=== PATIENT | female | born 1980 | race Caucasian/White ===

== ENCOUNTER 2023-08-04 05:51 | Observation (INO) ==
--- NOTE | 2023-07-30 09:28 | Anesthesiology Consultation ---
Date of Service July 30, 2023 Assessment & Plan (1) Encounter for pre-operative examination: Chart Review Chart Review: Acceptable Risk for Surgery (pending DOS EKG ) and Patient NOT seen in Pre Admission Testing - Check BSG AM DOS - Check test AM DOS - Check EKG due to history of prediabetes- on Ozempic for weight loss - Ozempic instructions: Patient informed by PAT nursing to stop 7 days prior to surgery. Patient takes Ozempic for weight loss; also history of prediabetes noted. Last dose of Ozempic was 07/21/23- will be off Ozempic x 14 days by DOS on 08/04/23 -Infectious Disease screening: Per PAT nursing assessment on 07/29/23. No known infectious disease contacts in past 10 days or current infectious disease symptoms. No recent travel outside the country. History Surgery Operation Date: 08/04/23 07:30 Proposed Procedures p Panniculectomy with Suction-Assisted Lipectomy of Truck - Jada Wang MD Height/Weight Height: 5 ft 4.5 in Weight: 89.811 kg Allergies Allergy/AdvReac Type Severity Reaction Status Date / Time No Known Drug Allergies Allergy Verified 07/29/23 16:03 Medications Home Medications Medication Instructions Recorded Confirmed Last Taken sertraline 100 mg tablet (Zoloft) 100 mg PO HS 08/22/22 07/29/23 08/28/22 20:00 cholecalciferol (vitamin D3) 125 125 mcg PO DAILY #90 caps 09/03/22 07/29/23 Unknown mcg (5,000 unit) capsule semaglutide 1 mg/dose (2 mg/1.5 2 mg subcut WK 11/07/22 07/29/23 Unknown mL) subcutaneous pen injector (Ozempic) levothyroxine 125 mcg tablet 125 mcg PO .COMPLEX #30 tabs 04/07/23 07/29/23 Unknown (Synthroid) azelastine 137 mcg (0.1 %) nasal 1 spray intranasal BID 07/03/23 07/29/23 Unknown spray aerosol fluticasone propionate 50 1 spray intranasal DAILY 07/03/23 07/29/23 Unknown mcg/actuation nasal spray,suspension oxycodone-acetaminophen 5 mg-325 1 tab PO Q4H PRN pain 3 days #18 07/25/23 07/25/23 Unknown mg tablet (Percocet) tabs Past Medical History Medical History Anxiety and depression GERD (gastroesophageal reflux disease) 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 body aches, fever, fatigue, congestion; resolved. Hypothyroidism Obesity states reason for ozempic PONV (postoperative nausea and vomiting) Prediabetes Past Family History Family History Father Hypertension Mother Hypertension Other No family history of adverse response to anesthesia Past Surgical History Surgical History H/O section X 1 History of cholecystectomy History of esophageal dilatation History of esophagogastroduodenoscopy (EGD) History of gynecologic surgery exploratory procedure and D&C History of incisional hernia repair History of wisdom tooth extraction Social History Smoking Status: Former smoker tobacco type: cigarettes Do You Dip or Chew Tobacco: No Smoking End Date: age 25 Hx Alcohol Use: No alcohol intake frequency: a few times a week Hx Substance Use: No substance use type: does not use Lab Results Anesthesia Preop Results Results Anesthesia Widget: WBC 7.07 K/ul (4.8-10.8) 07/25/23 Hgb 12.1 g/dl (12.0-16.0) 07/25/23 Hct 36.2 % (37.0-47.0) L 07/25/23 Plt 264 K/uL (130-400) 07/25/23 Na 139 mmol/L (136-145) 07/25/23 K 3.6 mmol/L (3.5-5.1) 07/25/23 Cl 108 mmol/L (98-107) H 07/25/23 CO2 25 mmol/L (21-32) 07/25/23 BUN 11 mg/dl (6-23) 07/25/23 Creat 0.63 mg/dl (0.6-1.2) 07/25/23 Glucose Level 76 mg/dl (70-99(Fasting)) 07/25/23 PT 10.8 Seconds (9.0-12.0) 07/25/23 INR 1.0 (0.9-1.1) 07/25/23 TSH 0.636 uIu/ml (0.300-4.500) 06/27/23 Free T4 1.06 ng/dl (0.61-1.60) 06/27/23
[2023-08-04] MEDS: LR 15ML/HR IV SCH (06:25)
[2023-08-04] MEDS ORDERED: ACETAMINOPHEN 1000 MG/100 ML IV IV ONE (06:44)
[2023-08-04] MEDS ORDERED: DexMEDEtomidine HCL IV 100 MCG/ML VIAL IV ONE (06:44)
[2023-08-04] MEDS ORDERED: FAMOTIDINE/PF 20 MG/2 ML VIAL IV ONE (06:44)
[2023-08-04] MEDS ORDERED: fentaNYL citrate PF 100 MCG/2 ML VIAL ONE (06:50)
[2023-08-04] MEDS ORDERED: MIDAZOLAM HCL 1 MG/ML 2ML VIAL ONE (06:50)
[2023-08-04] MEDS ORDERED: DEXAMETHASONE SOD INJ 4 MG/ML VIAL ONE (06:52)
[2023-08-04] MEDS ORDERED: PROPOFOL IV EMULSION 10 MG/ML 20 ML VIAL IV ONE ×2 (06:52→10:50)
[2023-08-04] MEDS ORDERED: ONDANSETRON INJ 2 MG/ML 2 ML VIAL ONE (06:52)
[2023-08-04] MEDS ORDERED: SODIUM CHLORIDE 0.9% PF INJ 10 ML VIAL ONE (06:52)
[2023-08-04] MEDS ORDERED: ROCURONIUM BROMIDE 10 MG/ML 5 ML VIAL IV ONE ×3 (06:52→10:51)
--- NOTE | 2023-08-04 06:53 | History & Physical Bridge Note ---
Date of Service August 04, 2023 History & Physical Bridge Note I have examined the patient, reviewed the History & Physical and in the interval since the performance of the History & Physical I have noted the following changes of clinical significance: no changes noted
[2023-08-04] MEDS ORDERED: KETAMINE HCL 10MG/ML SYR ONE (07:04)
[2023-08-04] MEDS: SCOPOLAMINE 1 MG TDSY TD ONE (07:17)
[2023-08-04] MEDS ORDERED: DROPERIDOL 5 MG/2 ML VIAL IV PRN (07:18)
[2023-08-04] MEDS ORDERED: fentaNYL citrate PF 100 MCG/2 ML VIAL IV PRN (07:18)
[2023-08-04] MEDS ORDERED: ATROPINE SULFATE 0.1 MG/ML 10ML SYR IV PRN (07:18)
[2023-08-04] MEDS ORDERED: ePHEDrine sulfate 50 MG/ML AMP IV PRN (07:18)
[2023-08-04] MEDS: ceFAZolin 2000MG 2,000 MG/15 ML SYR IV SCH ×2 (07:30→14:40)
[2023-08-04] MEDS: TRANEXAMIC ACID 1,000 MG **IV Pre-op IV SCH (07:40)
[2023-08-04] MEDS: LIDOCAINE 1% LOCAL 20 ML VIAL ONE ×2 (08:23→10:08)
[2023-08-04] MEDS ORDERED: PROPOFOL IV EMULSION 10 MG/ML 100 ML VIAL IV ONE (08:24)
[2023-08-04] MEDS: EPINEPHrine INJ 1 MG/ML AMP ONE ×2 (08:25)
[2023-08-04] MEDS ORDERED: HYDROmorphone INJ 1 MG/ML SYRINGE ONE (08:39)
--- NOTE | 2023-08-04 10:38 | Operative Report ---
PG Post Operative Report Pre & Post Diagnosis Operation Date: 08/04/23 07:30 Pre-Op Diagnosis: Abdominal Pannus, Encounter for Cosmetic Surgery Post-Op Diagnosis: Abdominal Pannus, Encounter for Cosmetic Surgery, Incisional Hernias x2 I identified the patient and participated in the time-out.: Yes Procedure Operation Date: 08/04/23 07:30 Actual Procedures p Panniculectomy with Suction-Assisted Lipectomy of Trunk(Not Applicable) - Jada Wang MD s Incisional Hernias Repair x2 with Vicryl Mesh - Sheila Gayle DO Surgeon Sheila Gayle DO Mrp Controller RUSTAM Caban PA Estimated Blood Loss 1 Findings See Below Two hernias involving the external oblique aponeurosis at the lateral aspects of the previous pfannenstiel incision. Left side incision 5x4cm, right incision 1cm. Specimens None Anesthesia Type General Complications None Indications Patient for panniculectomy. two incisional hernias encountered Description of Procedure I was called into the operating room to evaluate the two hernias encountered during the panniculectomy and would require repair. The larger left sided external oblique hernia was from the underlying muscle and a thin, woven, Vicryl mesh was placed anterior to his muscle layer and posterior to the external oblique aponeurosis to help reinforce underlying weakened muscle. A small amount of bleeding of muscle fibers was controlled with cautery. This was secured in place with 0-Ethibond suture. The overlying external oblique was closed using 0-Ethibond suture. The smaller hernia at the left edge of the pfannenstiel incision was closed primarily with 0-Ethibond sutures. There were no patient concerns during this portion of the procedure. Dr. Wang was then able to continue with the remainder of the panniculectomy. Details of which can be found in a separate operative report. I attest to the content of the Intraoperative Record and any orders documented therein. Any exceptions are noted below.
[2023-08-04] MEDS: TRANEXAMIC ACID 1,000 MG **IV Intra-op IV SCH (10:52)
--- NOTE | 2023-08-04 11:03 | Electrocardiogram Report ---
Test Reason : Blood Pressure : / mmHG Vent. Rate : 056 BPM Atrial Rate : 056 BPM P-R Int : 180 ms QRS Dur : 084 ms QT Int : 422 ms P-R-T Axes : 041 035 027 degrees QTc Int : 407 ms Sinus bradycardia Otherwise normal ECG No previous ECGs available Confirmed by Wilfredo Trejo ([id number]) on 08/04/2023 11:03:13 AM Referred By: Jada Wang Confirmed By:Navjot Trejo
[2023-08-04] MEDS ORDERED: NEOSTIGMINE METHYLSULFATE 1 MG/ML 10ML VIAL ONE (11:17)
[2023-08-04] MEDS ORDERED: GLYCOPYRROLATE 0.2 MG/ML VIAL ONE ×2 (11:17)
--- NOTE | 2023-08-04 11:58 | Post Operative Brief Note ---
PG Immediate Post Op with CF Date of Surgery August 04, 2023 Pre & Post Diagnosis Operation Date: 08/04/23 07:30 Pre-Op Diagnosis: Abdominal Pannus, Encounter for Cosmetic Surgery Post-Op Diagnosis: Abdominal Pannus, Encounter for Cosmetic Surgery, Incisional Hernias x2 I identified the patient and participated in the time-out.: Yes Procedure Operation Date: 08/04/23 07:30 Actual Procedures p Panniculectomy with Suction-Assisted Lipectomy of Trunk(Not Applicable) - Jada Wang MD s Incisional Hernia Repair x2 with Vicryl Mesh - Sheila Gayle DO Surgeon Jada Wang MD Elevator Examiner And Adjuster RUSTAM Caban PA Estimated Blood Loss 20 Findings See Below 2 hernias noted infraumbilically at prior Pfannenstiel incision Specimens Specimen Description: A. Abdominal Pannus (please weigh specimen) Drains Cartwright Catheter and Tal-Martino Drain (Mervin drains x2) Anesthesia Type General Complications none
--- NOTE | 2023-08-04 13:30 | Anesthesiology Progress Note ---
Date of Service August 04, 2023 Anesthesia Post Procedure Vital Signs Vital Signs: Temp Pulse Resp BP Pulse Ox O2 Del Method O2 Flow Rate 08/04/23 13:25 36.3 C L 49 L 18 114/76 100 Room Air 08/04/23 13:15 36.4 C L 50 L 12 106/67 99 Room Air 08/04/23 13:05 51 L 13 115/71 96 Room Air 08/04/23 12:55 48 L 13 107/71 95 Room Air 08/04/23 12:45 49 L 12 118/78 100 Oxymask 4 08/04/23 12:35 53 L 14 125/78 100 Oxymask 4 08/04/23 12:25 68 12 112/74 100 Oxymask 4 08/04/23 12:17 36.0 C L 86 16 110/88 99 Oxymask 6 08/04/23 06:15 18 Room Air Transfer of Care Handoff Completed per policy Notes Mental Status: alert / awake / arousable Patient Amnestic to Procedure: Yes Nausea / Vomiting: adequately controlled Pain: adequately controlled Airway Patency, RR, SpO2: stable & adequate BP & HR: stable & adequate Hydration State: stable & adequate Anesthetic Complications: no major complications apparent and Pt Satisfied with anesthetic care
[2023-08-04] MEDS ORDERED: ONDANSETRON INJ 2 MG/ML 2 ML VIAL IV PRN (13:58)
[2023-08-04] MEDS ORDERED: MoRPHine SULFATE 2 MG/ML CARP IV PRN (13:58)
[2023-08-04] MEDS ORDERED: PROMETHAZINE HCL 12.5 MG in SODIUM CHLORIDE 0.9% 50 ML IV PRN (13:58)
[2023-08-04] MEDS ORDERED: oxyCODONE/ACETAMINOPHEN 5mg/325mg TAB PO PRN (13:58)
[2023-08-04] MEDS: BUPIVACAINE 0.25% PF 30 ML VIAL ONE (14:19)
[2023-08-04] MEDS: LACTATED RINGER'S 1,000 ML IV SCH (14:19)
[2023-08-04] MEDS: CHECK SCOPOLAMINE PATCH PLACEMENT SCH (14:40)
--- NOTE | 2023-08-04 15:46 | Operative Report ---
PG Post Operative Report Pre & Post Diagnosis Operation Date: 08/04/23 07:30 Pre-Op Diagnosis: Abdominal Pannus, Encounter for Cosmetic Surgery Post-Op Diagnosis: Abdominal Pannus, Encounter for Cosmetic Surgery, Incisional Hernias x2 I identified the patient and participated in the time-out.: Yes Procedure Operation Date: 08/04/23 07:30 Actual Procedures p Panniculectomy with Suction-Assisted Lipectomy of Trunk(Not Applicable) - Jada Wang MD s Incisional Hernia Repair x2 with Vicryl Mesh - Sheila Gayle DO Surgeon Jada Wang MD Institutional Research Director RUSTAM Caban PA Estimated Blood Loss 20 Findings See Below inicisional hernias noted at both lateral aspects of her fascial caesarean incision Specimens abdominal pannus Drains [id number] Anesthesia Type General Complications none Indications s/p 120 lb weight loss with large overhanging and symptomatic pannus Description of Procedure Risks, benefits, and alternatives of the procedure were explained to the patient who agreed and signed consent. She was identified and marked in the preoperative holding area. She was brought to the operating room where she was positioned supine and placed under general anesthesia without incident. Cartwright catheter was placed. Surgical site was prepped and draped sterilely. A time-out procedure was performed. I began with the liposuction portion of the procedure. 1% lidocaine with epinephrine was used to anesthetize the planned stab incisions, and 4 small stab incisions were placed within the planned abdominal tissue resection as well as superior to the umbilicus. A total of 1000 cc of tumescent solution was used to infiltrate the area of planned liposuction (epigastric area and lateral aspect of hip incisions). A 3 mm cannula was selected. Tissue was pre-tunneled until the cannula was easily passed. Suction was applied and the cannula was passed in a fanning method from all 3 access incisions until there was uniform pinch, and bloody aspirate, monitoring the location of the cannula at all times with manual palpation. Total Lipo aspirate volume was approximately 900 cc. (600 epigastric, 200 left hip, 100 right hip). "Cosmetic time" was recorded by the OR staff. I reassessed my panniculectomy markings which included a lower horizontal abdominal incision with the midportion 7 cm above the vulvar commissure. Incision was marked bilaterally to the ASIS. I began by injecting 1% lidocaine with epinephrine along the planned incision. The lower abdominal incision was made using a 15-blade scalpel to incise epidermis and superficial dermis followed by electrocautery to incise deep dermis, subcutaneous fat, Pola's fascia down to the abdominal wall. Electrocautery was used to elevate the anterior abdominal skin flap ligating the perforating vessels with electrocautery. [place] between the incision and the umbilicus, 2 incisional hernias were noted at the lateral aspects of her prior fascial caesarean incision. The larger of the two 9on the left) had a 5x4 cm bulge noted, and the smaller one on the right had a prominent fascial separation but no significant bulging of abominal contents. Given the likely need for mesh repair, I called Dr. Gayle for an intraop consultation for possible repair. Given the wide exposure in this case and large defect, she did elect to perform repair. Her report is separately dictated. Dissection was carried up to the level of the umbilicus in the midline. At this point, a 15-blade scalpel was used to circumscribe the umbilicus. A vertical midline incision was then made from the incision to the umbilicus and divided in the midline using electrocautery. The umbilicus was then dissected out using electrocautery down to abdominal wall. The umbilical stalk appeared viable throughout the procedure. In order to facilitate inset of the umbilicus, dissection was continued for about an additional 8 cm superior to the umbilicus. At this point, the bed was flexed and the mid portion of the superior skin flap was inset above the mons pubis using 2-0 Vicryl suture. Skin flaps were marked for excision. A 15-blade scalpel was used to make these incisions and the incision was deepened through dermis, subcutaneous fat, Pola's fat using electrocautery. Subscarpal fat was resected directly.A 15 [place] Anthony drains were placed in the wound bed and brought out through a separate stab incision in the mons pubis. Prior to closure, a total of 10 mL of 0.25% Marcaine plain were injected into the fascia as well as along the incisions. The drains were sutured into place using 3-0 nylon. The umbilicus was brought out through an inverted triangular incision in the abdominal wall. This was performed using a 15-blade scalpel. Wound closure was then begun lateral to medial using 2-0 Vicryl Pola's fascia sutures, 2-0 Vicryl deep dermal sutures, 2-0 PDO running superficial Quill suture, 3-0 Monocryl running subcuticular suture. Umbilicus was brought out through the inverted triangle incision and was sutured into place using 4-0 chromic half buried horizontal mattress sutures. The umbilicus was dressed using Xeroform and the incision was dressed using Dermabond Prineo followed by dry dressings and an abdominal binder. The procedure was tolerated well. The patient was awakened and transferred to recovery in satisfactory condition. Callie Bunch PA-C was present and scrubbed throughout the procedure and was instrumental in providing retraction during dissection of the pedicle and pannus and assisting in wound closure. I attest to the content of the Intraoperative Record and any orders documented therein. Any exceptions are noted below.
--- NOTE | 2023-08-04 16:29 | Surgery Progress Note ---
Date of Service August 04, 2023 Assessment & Plan (1) Abdominal pannus: Plan: Reviewed operative findings and hernia repair with patient. May get out of bed, have gudino removed when ready. Communication order entered. Plan for d/c in am. Admission and Anticipated Discharge Date Admission Date: August 04, 2023 Subjective Doing well postop. Pain controlled. Would like to get out of bed, have gudino out this evening if possible. Physical Exam Physical Exam: resting comfortably, fully awake. Binder in place. JPs 5/10 cc. Results & Data Vital Signs (Past 12 Hours) Vital Signs Temp Pulse Pulse Resp BP Pulse Ox O2 Del Method 08/04/23 16:00 97.3 F L 57 L 16 108/78 99 Room Air 08/04/23 14:42 52 L 16 112/75 97 Room Air 08/04/23 14:21 98.2 F 64 18 118/64 99 Room Air 08/04/23 14:03 97.5 F L 50 L 18 104/68 97 Room Air 08/04/23 13:25 97.3 F L 49 L 18 114/76 100 Room Air 08/04/23 13:15 97.5 F L 50 L 12 106/67 99 Room Air 08/04/23 13:05 51 L 13 115/71 96 Room Air 08/04/23 12:55 48 L 13 107/71 95 Room Air 08/04/23 12:45 49 L 12 118/78 100 Oxymask 08/04/23 12:35 53 L 14 125/78 100 Oxymask 08/04/23 12:25 68 12 112/74 100 Oxymask 08/04/23 12:17 96.8 F L 86 16 110/88 99 Oxymask 08/04/23 06:15 18 Room Air O2 Flow Rate 08/04/23 16:00 08/04/23 14:42 08/04/23 14:21 08/04/23 14:03 08/04/23 13:25 08/04/23 13:15 08/04/23 13:05 08/04/23 12:55 08/04/23 12:45 4 08/04/23 12:35 4 08/04/23 12:25 4 08/04/23 12:17 6 08/04/23 06:15 PG Care Time/CCT Total # of Minutes Spent Total Time Spent with Patient: Total time spent is greater than 50% in coordination of care (as documented) at patient's floor/unit and/or counseling patient: Coding Level of Care Code 45389 Post Operative Follow-Up Diagnoses Abdominal pannus E65
[2023-08-04] MEDS: LEVOTHYROXINE SODIUM 125 MCG TABLET PO SCH (16:48)
[2023-08-04] MEDS: MoRPHine SULFATE 4 MG/ML 1 ML CARP\\VIAL IV PRN (19:23)
[2023-08-04] MEDS: SERTRALINE HCL 100 MG TABLET PO SCH (20:21)
[2023-08-04] MEDS: oxyCODONE/ACETAMINOPHEN 5mg/325mg TAB PO PRN (22:23)
--- NOTE | 2023-08-05 10:30 | Surgery Progress Note ---
Date of Service August 05, 2023 Assessment & Plan Admission and Anticipated Discharge Date Admission Date: August 04, 2023 Subjective Doing well postop. Pain controlled. Cartwright was removed last night and patient successfully voided. She has been ambulating. Physical Exam Physical Exam: binder in place- no saturation on gauze dressings. drains with appropriate serosang output Results & Data Vital Signs (Past 12 Hours) Vital Signs Temp Pulse Pulse Resp BP Pulse Ox O2 Del Method 08/05/23 07:44 36.7 C 53 L 14 99/65 L 97 Room Air 08/05/23 03:29 36.7 C 68 16 110/67 96 Room Air 08/04/23 23:19 36.9 C 58 L 18 101/68 98 Room Air PG Care Time/CCT Total # of Minutes Spent Total Time Spent with Patient: Total time spent is greater than 50% in coordination of care (as documented) at patient's floor/unit and/or counseling patient: Coding Level of Care Code 03032 Post Operative Follow-Up
--- NOTE | 2023-08-06 13:28 | Discharge Summary ---
Date of Service August 06, 2023 Admission HPI Per Admitting Provider Jada has history of significant weight loss, presents with large, symptomatic abdominal pannus. Admission Exam Per Admitting Provider large abdominal pannus Principal Diagnosis Abdominal Pannus Discharge Exam VSS binder in place- no saturation on gauze dressings. drains with appropriate serosang output Discharge Data Allergies Allergy/AdvReac Type Severity Reaction Status Date / Time No Known Drug Allergies Allergy Verified 08/04/23 06:13 Procedures Performed Operation Date: 08/04/23 07:30 Actual Procedures p Panniculectomy with Suction-Assisted Lipectomy of Trunk(Not Applicable) - Jada Wang MD s Incisional Hernia Repair x2 with Vicryl Mesh - Sheila Gayle DO Hospital Course (1) Abdominal pannus: Patient presented to [facility] with history of abdominal pannus. She was taken to the OR and underwent panniculectomy. There was intraoperative findings of incisional hernia x 2. Dr. Bijan Luther and Lacey Larsen PA-C, scrubbed in to repair the hernias using primary closure and vicryl mesh. She was taken to recovery and transferred to med/surg for observation. On POD#1, she was feeling well. She was tolerating a regular diet and ambulating. She was able to void after catheter was removed. On exam, her vitals were stable. Her incisions were CDI. Her drains had appropriate output. She was discharged home with instructions to follow-up in the office in one day. Total Time Total Time Spent Total Time Spent (In Minutes): 15 Total Time Includes: Examination of the Patient, Discharge Planning, Medication Reconciliation and Communication With Other Providers Discharge Plan Discharge Items Patient Disposition: Home - Self-Care Reason For Visit: Abdominal Pannus, Encounter for Cosmetic Surgery Discharge Diagnosis: s/p panniculectomy with suction assisted lipectomy of the abdomen, intraoperative hernia repair Activity: As commented below Non-emergency contact: Surgeon Call non-emergency contact if: you have any medication questions, your pain is not controlled, you have a fever and your wound has increased redness Follow-up/Referrals: Callie Bunch PA-C [Physician Public Message Service Supervisor] - Elham Concepcion CRNP [Primary Care Provider] - Sheila Gayle DO [Physician] - Diet: Regular Addtl Attending Provider Instructions: ACTIVITY RECOMMENDATIONS: __Normal activities _x_No bending, lifting or straining __No driving __Driving allowed when you are off pain medications _x_Walking permitted __You should have help at home for ___ days DRESSINGS: __No dressings required _x_Keep dressings dry/in place until first office visit __Remove dressings ___ and leave dressings off __Apply ice ___ days __Remove dressings and reapply garment __Apply antibiotic ointment (Bacitracin, Neosporin, etc) to wounds 3-4 times/day for 10 days BATHING: _x_Keep dressings dry _x_Sponge bathing permitted __Showering permitted _x_No swimming, hot tubs or soaking in a tub MEDICATIONS: Resume previous medications unless instructed otherwise by your surgeon. _x_Do not use aspirin, Motrin, Advil or Ibuprofen as these may promote bleeding. Please use Tylenol. _x_Prescription(s) provided: pain medication was provided at your last office visit OTHER INSTRUCTIONS: _x_Record drain output 2-3 times per day SPECIAL CARE INSTRUCTIONS: * It is normal to have a mild fever after surgery. If your temperature is higher than 101.5 degrees F, please call the office at [phone]. * Constipation is a typical side effect of pain medication. An [id number] stool softener will help relieve this. * Leaking around surgical drains may occur and should not cause concern. Sometimes these drains become clogged. If this happens, remove the bulb and milk the clot out of the tube, then replace the bulb. * Drainage from wounds after liposuction is normal and should be expected. Garments will become soiled. You should protect furniture and bedding. This drainage should mostly subside within 2-3 days. Leave garments in place unless instructed to remove them. * If you have unusual drainage from a wound or are concerned you have an infection or have any questions or concerns, please call the office at [phone]. FOLLOW UP VISIT: If not already scheduled, please call the office, , when you return home after surgery to schedule an appointment to be seen in _1__ days. Pending Studies at Discharge: Yes Stand-Alone Forms: [facility] [employer], Smoking Cessation Medications and DC Order Prescriptions: Continued levothyroxine [Synthroid] 125 mcg tablet 125 mcg PO .COMPLEX Qty: 30 2RF Rx Instructions: 125 mcg orally 6 days a week; fluticasone propionate 50 mcg/actuation spray,suspension 1 spray intranasal DAILY Patient Comments: on hold Rx Instructions: administer into each nostril azelastine 137 mcg (0.1 %) aerosol,spray 1 spray intranasal BID Patient Comments: on hold Rx Instructions: administer into each nostril cholecalciferol (vitamin D3) 125 mcg (5,000 unit) capsule 125 mcg PO DAILY Qty: 90 0RF Hold Instructions: surgery Patient Comments: on hold oxycodone-acetaminophen [Percocet] 5-325 mg tablet 1 tab PO Q4H PRN (Reason: pain) 3 Days Qty: 18 0RF Rx Instructions: Initial therapy. sertraline [Zoloft] 100 mg Tablet 100 mg PO HS Discontinued Ozempic 1 mg/dose (2 mg/1.5 mL) pen injector 2 mg SUBCUT WK Hold Instructions: surgery Patient Comments: TAKES ON mondays Discharge Orders: Discharge Order (Routine); Ordered 08/05/23 Ordered By: Callie Bunch Admission Data Admit Date/Time: 08/04/23 12:27 Attending Provider: Jada Wang Admit Provider: Jada Wang Primary Care Provider: Elham Concepcion Other Interventions: Discharge Summary Assessment (RN) Last Done: 08/05/23 11:01 Coding Level of Care Code 11457 OBS Care - Discharge Diagnoses Abdominal pannus E65
== END 2023-08-05 11:30 | disposition home or self-care (01) ==
LOC: 3E 05:51 → ASU 05:51
DX: F41.9 Anxiety disorder, unspecified; K21.9 Gastro-esophageal reflux disease without esophagitis; Z79.890 Hormone replacement therapy; E66.9 Obesity, unspecified; Z79.899 Other long term (current) drug therapy; Z86.16 Personal history of COVID-19; Z41.1 Encounter for cosmetic surgery; K43.2 Incisional hernia without obstruction or gangrene; E06.3 Autoimmune thyroiditis; Z68.34 Body mass index [BMI] 34.0-34.9, adult